=== PATIENT | female | born 1945 | race Caucasian/White ===

== ENCOUNTER 2017-03-12 19:20 | Emergency (ER) | payer OTHER ==
[~2017-03-12] VITALS: Ht 147.3 cm; Wt 68.1 kg
[2017-03-12 20:05] LABS: APPEARANCE CLEAR ((CLEAR)); BILIRUBIN NEGATIVE; BLOOD NEGATIVE; COLOR STRAW ((YELLOW)); GLUCOSE (STRIP) NEGATIVE; KETONES NEGATIVE; LEUKOCYTES NEGATIVE; NITRITE NEGATIVE; PROTEIN (STRIP) NEGATIVE; SPECIFIC GRAVITY 1.009 (1.000-1.030); UCUL ADDED? NO; UROBILINOGEN 0.2 MG/DL (0.2-1.0)
[2017-03-12 20:13] LABS: HEMATOCRIT 39.3 % (36.0-46.0); HEMOGLOBIN 12.3 G/DL (11.9-15.5); MCH 24.9 PG (29.0-34.0); MCHC 31.3 G/DL (30.0-36.0); MCV 79.6 FL (83-99); PLATELET COUNT 298 K/uL (156-360); RBC DIS.WIDTH-CV 15.8 % (11.8-14.6); RBC DIS.WIDTH-SD 44.9 % (39-53); RED BLOOD COUNT 4.94 M/uL (3.80-5.20); WHITE BLOOD COUNT 8.1 K/uL (4.1-10.2)
[2017-03-12 20:17] LABS: AMPHETAMINE NEGATIVE (500 ng/mL); BARBITURATES NEGATIVE (200 ng/mL); BENZODIAZEPINES PRESUMPTIVE POSITIVE (150 ng/mL); BUPRENORPHINE NEGATIVE (10 ng/mL); COCAINE NEGATIVE (150 ng/mL); METHADONE NEGATIVE (200 ng/mL); METHAMPHETAMINE NEGATIVE (500 ng/mL); OPIATES (MORPHINE) NEGATIVE (100 ng/mL); OXYCODONE NEGATIVE (100 ng/mL); PHENCYCLIDINE NEGATIVE (25 ng/mL); PROPOXYPHENE NEGATIVE (300 ng/mL); THC CANNABINOIDS NEGATIVE (50 ng/mL); TRICYCLIC ANTIDEPRESSANTS NEGATIVE (300 ng/mL)
[2017-03-12 20:21] LABS: ALBUMIN 3.8 g/dL (3.2-4.8)
[2017-03-12 20:22] LABS: CHLORIDE 105 mEq/L (99-109); POTASSIUM 3.9 mEq/L (3.7-5.4); SODIUM 139 mEq/L (136-147)
[2017-03-12 20:24] LABS: GLUCOSE 101 mg/dL (70-99); TOTAL PROTEIN 7.2 g/dL (6.4-8.3)
[2017-03-12 20:26] LABS: TOTAL BILIRUBIN 0.6 mg/dL (0.0-1.0)
[2017-03-12 20:27] LABS: ALKALINE PHOSPHATASE 106 IU/L (3-129)
[2017-03-12 20:28] LABS: CREATININE 0.7 mg/dL (0.6-1.3); GFR ESTIMATE (CALCULATED) > 59 mL/min/
[2017-03-12 20:29] LABS: AST (GOT) 14 IU/L (2-34); UREA NITROGEN (BUN) 14 mg/dL (9-23)
[2017-03-12 20:30] LABS: ALT (GPT) 9 IU/L (3-49)
[2017-03-12 20:36] LABS: TROP-I INTERPRETATION NEGATIVE; TROPONIN-I < 0.01 ng/mL (0.0-0.30)
[2017-03-12 20:51] LABS: BENZODIAZEPINES, URINE SCREEN Negative (200 ng/mL)
[2017-03-12] MEDS ORDERED: FLEXERIL5 MG PO (22:00)
[2017-03-12] MEDS ORDERED: MOTRIN600 MG PO (22:00)
[2017-03-12 22:34] VITALS: BP 200/118
== END 2017-03-12 22:38 | disposition home or self-care (01) ==
LOC: EME → EDBD 19:20 → EME 22:38
PROVIDERS: Physician Assistant Medical
DX: R07.89 Other chest pain (principal); R91.8 Other nonspecific abnormal finding of lung field; R00.1 Bradycardia, unspecified; K21.9 Gastro-esophageal reflux disease without esophagitis; I10 Essential (primary) hypertension; M79.7 Fibromyalgia; F41.9 Anxiety disorder, unspecified; F17.200 Nicotine dependence, unspecified, uncomplicated; Z88.5 Allergy status to narcotic agent; Z88.6 Allergy status to analgesic agent
CPT/HCPCS: 71045; 71275; 80053; 81003; 84484; 84999; 85027; 93005; 99281; 99285; J1885